=== PATIENT | female | born 1950 | race Caucasian/White ===

== ENCOUNTER 2018-07-08 08:50 | Emergency (ER) | payer OTHER ==
[~2018-07-08] VITALS: Ht 167.6 cm; Wt 66.2 kg
[2018-07-08 08:55] VITALS: BP 165/79
[2018-07-08] MEDS ORDERED: ONDANSETRON 4 MG ODT PO ONE (09:15)
[2018-07-08] MEDS ORDERED: MORPHINE SULFATE 4 MG/ML SYR IM ONE (09:15)
[2018-07-08 11:05] VITALS: BP 156/75
== END 2018-07-08 11:05 | disposition home or self-care (01) ==
LOC: MED 08:50
DX: S33.5XXA Sprain of ligaments of lumbar spine, initial encounter (principal); S09.90XA Unspecified injury of head, initial encounter; V43.52XA Car driver injured in collision with other type car in traffic accident, initial encounter; Y93.I9 Activity, other involving external motion; Y92.411 Interstate highway as the place of occurrence of the external cause; Y99.8 Other external cause status
CPT/HCPCS: 70450; 72128; 72131; 93005; 96372; 99284; J2270; Q0162